=== PATIENT | female | born 1985 | race Caucasian/White ===

== ENCOUNTER 2017-05-27 15:46 | Emergency (ER) | payer MEDICAID ==
[2017-05-27 16:13] VITALS: BP 111/66
--- NOTE | 2017-05-27 18:12 | ED ---
Throat Pain/Nasal Congestion - HPI Summary HPI Summary: 31 yr old with wisdom tooth extraction times [address] [facility] in [place] gave her 9 hydrocodone tablets. She is having a lot of pain in the extraction sites and rates it 8/10, non radiating. Denies fever, chills drainage. Denies swelling to the face. Her main issue is the pain. - History of Current Complaint Chief Complaint: UCDentalProblem Time Seen by Provider: 05/27/17 17:47 - Allergies/Home Medications Allergies/Adverse Reactions: Allergies Allergy/AdvReac Type Severity Reaction Status Date / Time No Known Allergies Allergy Verified 05/27/17 16:13 Home Medications: Home Medications Amoxicillin PO (*) [Amoxicillin 500 MG CAP*] 05/27/17 [History] Ibuprofen TAB* [Motrin TAB* 600 MG] 1 cap PO Q6HR PRN 05/27/17 [History Confirmed 05/27/17] PMH/Surg Hx/FS Hx/Imm Hx Previously Healthy: Yes - Surgical History Surgery Procedure, Year, and Place: [place] teeth 05/21/17 Infectious Disease History: No Infectious Disease History: Denies: History Other Infectious Disease, Traveled Outside the [place] in Last 30 Days - Family History Known Family History: Positive: None - Social History Alcohol Use: Rare Substance Use Type: Reports: None Smoking Status (MU): Former Smoker Type: Cigarettes Amount Used/How Often: 1 cig per day Have You Smoked in the Last Year: Yes Review of Systems Constitutional: Negative Positive: Dental Pain All Other Systems Reviewed And Are Negative: Yes Physical Exam Triage Information Reviewed: Yes Vital Signs On Initial Exam: Initial Vitals Temp Pulse Resp BP Pulse Ox 98.4 F 74 18 111/66 99 05/27/17 16:07 05/27/17 16:07 05/27/17 16:07 05/27/17 16:07 05/27/17 16:07 Vital Signs Reviewed: Yes Appearance: Positive: Well-Appearing Skin: Positive: Warm Head/Face: Positive: Normal Head/Face Inspection Eyes: Positive: EOMI ENT: Positive: Other - no facial swelling, her extraction sites from wisdom teeth are without gingival swelling and there is no drainage. Neck: Positive: Supple, Nontender, No Lymphadenopathy Respiratory/Lung Sounds: Positive: Clear to Auscultation, Breath Sounds Present Cardiovascular: Positive: RRR. Negative: Murmur Abdomen Description: Negative: Distended Musculoskeletal: Positive: Strength/ROM Intact Neurological: Positive: Sensory/Motor Intact, Alert, Oriented to Person Place, Time, CN Intact II-III Psychiatric: Positive: Normal - [place] Coma Scale Best Eye Response: 4 - Spontaneous Best Motor Response: 6 - Obeys Commands Best Verbal Response: 5 - Oriented Diagnostics - Vital Signs Vital Signs Temp Pulse Resp BP Pulse Ox 05/27/17 16:07 98.4 F 74 18 111/66 99 - Laboratory Lab Statement: Any lab studies that have been ordered have been reviewed, and results considered in the medical decision making process. EENT Course/Dx - Course Course Of Treatment: 31 yr old female with post op pain, will give 12 hydrocodone tylenol tabs. [facility]. - Diagnoses Provider Diagnoses: Pain, dental Discharge - Discharge Plan Condition: Good Disposition: HOME Prescriptions: HYDROcodone/ACETAMIN 5-325 MG* [[place] 5-325 TAB*] 1 tab PO Q6H PRN #12 tab MDD 4 PRN Reason: Pain Patient Education Materials: Toothache (ED) Referrals: [facility]ERR[facility] [Outside] Additional Instructions: be sure to follow up with samy oseguera as soon as possible
== END 2017-05-27 18:15 | disposition home or self-care (01) ==
LOC: UCEAST 15:46
DX: K08.89 Other specified disorders of teeth and supporting structures (principal); F17.210 Nicotine dependence, cigarettes, uncomplicated
CPT/HCPCS: 99212; G0463

== ENCOUNTER 2019-08-18 10:42 | Emergency (ER) | payer OTHER ==
--- OUTSIDE RECORDS SUMMARY | 2019-08-18 10:50 | XMS REPORT | Continuity of Care Document ---
:1985 External Reference #:[id number] Author Name AMINATA Navarro Address [address] [place] [id number] Problems Inactive Problems Provider Date Scoliosis deformity of spine Onset: 03/06/2019 Inactive: 03/06/2019 Thoracic back pain Onset: 03/06/2019 Inactive: 03/06/2019 Social History Type Date Description Comments Sex Unknown Allergies, Adverse Reactions, Alerts Description No Information Available Medications Active Medications SIG Qnty Indications Ordering Provider Date Cyclobenzaprine HCL 1-2 three 20tabs Unknown 10/12/2017 5mg times each day Tablets prn Oral Immunizations CPT Code Status Date Vaccine Lot # [id number] Refused 10/12/2017 Influenza Virus Vaccine, Quadrivalent, Split, Im Use 0.25ML Vital Signs Date Vital Result Comment 07/03/2019 1:33pm BP Systolic 112 mmHg BP Diastolic 72 mmHg Weight 111.00 lb Heart Rate 75 /min Body Temperature 98.6 F O2 % BldC Oximetry 99 % 03/06/2019 11:45am BP Systolic 90 mmHg Height 62.50 inches 5'2.50" Weight 115.00 lb Heart Rate 67 /min Body Temperature 97.7 F O2 % BldC Oximetry 99 % BMI (Body Mass Index) 20.70 kg/m2 Results Description No Information Available Procedures Description No Information Available Medical Devices Description No Information Available Encounters Type Date Location Provider Dx Diagnosis Office Visit 07/03/2019 1:15p [facility] AMINATA Navarro G56.03 Carpal tunnel syndrome, bilateral upper limbs M54.6 Pain in thoracic spine Assessments Date Code Description Provider 07/03/2019 G56.03 Carpal tunnel syndrome, bilateral upper limbs AMINATA Navarro 07/03/2019 M54.6 Pain in thoracic spine AMINATA Navarro Plan of Treatment 07/03/2019 - SUSANNA NavarroPG56.03 Carpal tunnel syndrome, bilateral upper limbsComments:discussed carpal tunnelrecommend starting to take aleve BID with food to reduce inflammation and painapply ice to wrists BIDcontinue wearing wrist splints will refer to ortho for further evaluation and treatmentReferral: Fermin Medina MD,M54.6 Pain in thoracic spineComments:discussed continuing PT for treatment rx written for PTFollow up:As needed. Functional Status Description No Information Available Mental Status Description No Information Available Referrals Refer to Reason for Referral Status Appt Date Fermin Medina MD carpal tunnel bilateral Created [address] [place] [id number] [phone]
[2019-08-18 11:21] VITALS: BP 102/66
--- NOTE | 2019-08-18 11:50 | UC ---
Dental HPI - HPI Summary HPI Summary: 33-year-old female presents with onset of left lower dental pain yesterday. Patient complaining of her aggressively worsening pain at the first left lower bicuspid. Has not taken any deup-lzd-vwbckip analgesics. No dental appointment scheduled. Denies fever, chills, facial swelling, trismus, dysphagia , or drainage. - History of Current Complaint Chief Complaint: UCDentalProblem Stated Complaint: TOOTH PAIN Time Seen by Provider: 08/18/19 11:27 Hx Obtained From: Patient Hx Last Menstrual Period: 05/01/17 Pain Intensity: 8 Dental: 1 - Dental pain - Allergies/Home Medications Allergies/Adverse Reactions: Allergies Allergy/AdvReac Type Severity Reaction Status Date / Time No Known Allergies Allergy Verified 05/27/17 16:13 PMH/Surg Hx/FS Hx/Imm Hx Previously Healthy: Yes - Denies significant PMH - Surgical History Surgical History: Yes Surgery Procedure, Year, and Place: [place] teeth 05/21/17 - Family History Known Family History: Positive: None - Social History Lives: With Family Alcohol Use: Rare Substance Use Type: None Smoking Status (MU): Former Smoker Type: Cigarettes Amount Used/How Often: 1 cig per day Have You Smoked in the Last Year: Yes Review of Systems All Other Systems Reviewed And Are Negative: Yes Constitutional: Negative: Fever, Chills ENT: Positive: Dental Pain Respiratory: Positive: Negative Cardiovascular: Positive: Negative Gastrointestinal: Positive: Negative Genitourinary: Positive: Negative Musculoskeletal: Positive: Negative Neurological: Positive: Negative Is Patient Immunocompromised?: No Physical Exam - Summary Physical Exam Summary: GENERAL APPEARANCE: Well developed, well nourished, alert and cooperative, and appears to be in no acute distress. HEAD: Atraumatic. Normocephalic. No facial swelling noted. MOUTH/THROAT: Pharynx normal No tonsilar inflammation, swelling, exudate, or lesions. Uvula midline. Teeth and gingiva in fair general condition with few repaired dental caries noted. Tenderness at the 1 left lower bicuspid with no gingival erythema, induration, fluctuance, or drainage noted. No trismus. NECK: Neck supple, non-tender without lymphadenopathy. CARDIAC: Normal S1 and S2. No S3, S4 or murmurs. Rhythm is regular. There is no peripheral edema, cyanosis or pallor. Extremities are warm and well perfused. Capillary refill is less than 2 seconds. Peripheral pulses intact. LUNGS: Clear to auscultation without rales, rhonchi, wheezing or diminished breath sounds. ABDOMEN: Positive bowel sounds. Soft, nondistended, nontender. No guarding or rebound. No masses or hepatosplenomegally. MUSKULOSKELETAL: ROM intact to all extremities. No joint erythema or tenderness. Normal muscular development. Normal gait. SKIN: Skin normal color, texture and turgor with no lesions or eruptions. Triage Information Reviewed: Yes Vital Signs: Initial Vital Signs Temp 98.8 F 08/18/19 11:12 Pulse 65 08/18/19 11:12 Resp 16 08/18/19 11:12 BP 102/66 08/18/19 11:12 Pulse Ox 98 08/18/19 11:12 Vital Signs Reviewed: Yes Dental Complaint Course/Dx - Course Course Of Treatment: 33-year-old female presents with onset of left lower dental pain yesterday. Patient complaining of her aggressively worsening pain at the first left lower bicuspid. Has not taken any nxsc-dch-sxkheuc analgesics. No dental appointment scheduled. Denies fever, chills, facial swelling, trismus, dysphagia , or drainage. Afebrile. Vital signs stable. Patient' teeth and gingiva were noted to be in fair general condition with few repaired dental caries noted. She had some tenderness at the 1st left lower bicuspid with no gingival erythema, induration , fluctuance, or drainage noted. No trismus. We'll start her on Augmentin 875 mg twice a day 10 days to treat for a likely dental infection. We'll provide her with a prescription for naproxen 500 mg 1 tablet every 12 hours as needed for pain. She is to follow-up with her dentist at the next available appointment. Anticipatory guidance warning symptoms were reviewed with the patient. Verbalizes understanding and agrees with plan of care. - Differential Dx/Diagnosis Differential Diagnosis/Dx: Dental Abscess, Dental Caries, Fractured Tooth, Odontogenic Pain, Peridontic Disease Provider Diagnosis: Pain, dental Discharge ED - Sign-Out/Discharge Documenting (check all that apply): Patient Departure All imaging exams completed and their final reports reviewed: No Studies - Discharge Plan Condition: Stable Disposition: HOME Prescriptions: Amoxicillin/Clavulanate TAB* [Augmentin TAB 875*] 875 mg PO BID #20 tab Naproxen [Naproxen 500 mg tab] 500 mg PO Q12HR PRN #30 tablet PRN Reason: Pain - Mild Patient Education Materials: Toothache (ED) Referrals: No Primary Care Phys,NOPCP [Primary Care Provider] - Additional Instructions: Start Augmentin 875 mg 1 tab twice a day for 10 days. Take naproxen 500 mg 1 tab every 12 hours as needed for pain. Be sure to rinse your mouth out with a warm salt water solution after every time you eat to remove any debris. Make an appointment with your dentist at next available appointment. Seek immediate medical attention in the emergency room if you develop fever greater than 100.5 F, you are unable to open of close your mouth, are unable to swallow, have difficulty breathing, or any worsening of symptoms. - Billing Disposition and Condition Condition: STABLE Disposition: Home
== END 2019-08-18 12:09 | disposition home or self-care (01) ==
LOC: UCEAST 10:42
DX: K08.89 Other specified disorders of teeth and supporting structures (principal); Z87.891 Personal history of nicotine dependence
CPT/HCPCS: 99202; G0463